=== PATIENT | male | born 1990 | race Caucasian/White ===

== ENCOUNTER 2021-02-15 13:00 | Emergency (ER) | payer OTHER ==
[~2021-02-15 13:00] MED LIST: AUGMENTIN 875-1 EACH PO; BACTROBAN NASAL1 G1 TOP; IBUPROFEN600 MG PO
[2021-02-15] MEDS ORDERED: LODINE CAP 300300 MG PO (14:18)
== END 2021-02-15 14:38 | disposition home or self-care (01) ==
LOC: ER1 13:00
DX: S63.502A Unspecified sprain of left wrist, initial encounter (principal); W18.30XA Fall on same level, unspecified, initial encounter; Y92.89 Other specified places as the place of occurrence of the external cause; Y99.0 Civilian activity done for income or pay
CPT/HCPCS: 73110; 99283